=== PATIENT | male | born 1970 | race Caucasian/White ===

== ENCOUNTER 2024-11-06 22:49 | Emergency (ER) | payer MEDICAID ==
[~2024-11-06] VITALS: Ht 180.3 cm; Wt 84.1 kg
[2024-11-06 22:54] VITALS: BP 181/109; PULSE 101; RESP 16; O2SAT 100
--- NOTE | 2024-11-07 00:03 | Physician Documentation ---
HPI ~ General Chief Complaint: Medication Refill Stated Complaint: MEDICATION REFILL Time Seen by MD: 23:43 History of Present Illness HPI Comments The patient Is seen today with complaints of needing refills of his medications including spironolactone, Eliquis, losartan, furosemide, digoxin, and diltiazem. Patient denies any current chest pain or shortness of breath or abdominal pain or nausea, vomiting, diarrhea. Patient has no other concern or complaint at this time. Medication Reconciliation Allergies: Coded Allergies: No Known Allergies (Unverified , 11/06/24) Review of Systems Constitutional: Denies: chills, fever, weakness Eyes: Denies: pain, blurred vision ENT: Denies: ear pain, nose pain, throat pain, mouth pain Respiratory: Denies: cough, shortness of breath Cardiovascular: Denies: chest pain, palpitations Gastrointestinal: Denies: abdominal pain, nausea, vomiting Genitourinary: Denies: burning, dysuria Male Genitalia: Denies: penile discharge, testicular pain Neurological: Denies: headache, dizziness Musculoskeletal: Denies: pain, swelling Integumentary: Denies: rash, lesions Allergic/Immunologic: Denies: hives, itching Hematologic/Lymphatic: Denies: no symptoms reported Psychiatric: Denies: depression, anxiety Physical Exam Physical Exam Vital Signs: Temperature: 97.0, Source: Temporal, Heart Rate: 101, Respiratory Rate: 16, BP: 181/109, Pulse Oximetry: 100, Weight: 84.090 Physical Exam General: Awake and Alert, no acute distress. HEENT: Conjunctiva pink, Sclera clear, Mucus Membranes moist. Neck: Supple without masses and tenderness. Resp: Unlabored. Lungs clear to auscultation bilaterally. Heart: Regular Rate and rhythm, normal S1 and S2 without murmur, rub or gallop. Abdomen: Soft and non tender no organomegaly Extremities: No cyanosis,clubbing or edema. Skin: Warm and Dry. Progress Results/Orders Results/Orders Vital Signs 11/06/24 22:54 Temp 97.0 Pulse 101 Resp 16 B/P (MAP) 181/109 Pulse Ox 100 Medical Decision Making Findings The patient Is seen today with complaints of needing refills of his medications including spironolactone, Eliquis, losartan, furosemide, digoxin, and diltiazem. Patient denies any current chest pain or shortness of breath or abdominal pain or nausea, vomiting, diarrhea. Patient has no other concern or complaint at this time. Patient was given refills of spironolactone 25 mg p.o. q.d., Eliquis 5 mg p.o. b.i.d., losartan 100 mg p.o. q.d., furosemide 20 mg p.o. q.d., digoxin 250 mg p.o. q.d., diltiazem extended release 24 hour 180 mg p.o. q.d.. Patient will follow up with primary care for refills next month. Return to ED with any worsening, concerning or changing symptoms. Differential Dx:Considerations: Include: Adverse circumstances, Economic, Psychosocial, Medical services unavail., Medication refill, Medication non- compliance, Other Departure Disposition: 01 HOME / SELF CARE / HOMELESS Impression: Primary Impression: General medical exam Condition: Improved Discharge Instructions: Medicine Refill at the Emergency Department Additional Instructions: Patient was given refills of spironolactone 25 mg p.o. q.d., Eliquis 5 mg p.o. b.i.d., losartan 100 mg p.o. q.d., furosemide 20 mg p.o. q.d., digoxin 250 mg p.o. q.d., diltiazem extended release 24 hour 180 mg p.o. q.d.. Patient will follow up with primary care for refills next month. Return to ED with any worsening, concerning or changing symptoms. Referrals: NO PRIMARY CARE PROVIDER (PCP) Prescriptions Diltiazem Hcl (Diltiazem 24HR Cd) 180 Mg Cap.er.24h 1 CAP PO DAILY for 30 Days, #30 CAP 0 Refills Prov: ARAMIS MARTINEZ PAC 11/07/24 Digoxin* (Lanoxin*) 250 Mcg Tablet 1 TAB PO DAILY for 30 Days, #30 TAB Prov: ARAMIS MARTINEZ PAC 11/07/24 Furosemide* (Lasix*) 20 Mg Tablet 1 TAB PO DAILY for 30 Days, #30 TAB Prov: ARAMIS MARTINEZ PAC 11/07/24 Losartan Potassium (Losartan Potassium) 100 Mg Tablet 1 TAB PO DAILY for 30 Days, #30 TAB 0 Refills Prov: ARAMIS MARTINEZ PAC 11/07/24 Apixaban (ELIQUIS) 5 Mg Tablet 1 TAB PO Q12H for 30 Days, #60 TAB 0 Refills Prov: ARAMIS MARTINEZ 11/07/24 Spironolactone (Spironolactone) 25 Mg Tablet 1 TAB PO DAILY for 30 Days, #30 TAB 0 Refills Prov: ARAMIS MARTINEZ 11/07/24 Signature Scribe Signature: No scribe Attestation: No scribe ARAMIS MARTINEZ November 07, 2024 00:03
[2024-11-07] MEDS ORDERED: DILT180C89 PO (00:08)
[2024-11-07] MEDS ORDERED: LOSA100T58 PO (00:08)
[2024-11-07] MEDS ORDERED: APIX5TAB3 PO (00:08)
[2024-11-07] MEDS ORDERED: SPIR25TA5 PO (00:08)
[2024-11-07] MEDS ORDERED: FURO-150 PO (00:08)
[2024-11-07] MEDS ORDERED: DIGO250T PO (00:08)
[2024-11-07 00:32] VITALS: TEMP 97
== END 2024-11-07 00:37 | disposition home or self-care (01) ==
LOC: ER 22:50
DX: I10 Essential (primary) hypertension (principal); Z76.0 Encounter for issue of repeat prescription
CPT/HCPCS: 99281

== ENCOUNTER 2025-01-23 16:49 | Emergency (ER) | payer MEDICAID ==
[~2025-01-23] VITALS: Ht 180.3 cm; Wt 89.0 kg
[~2025-01-23 16:49] MED LIST: APIX5TAB3 PO; DILT180C89 PO; LOSA100T58 PO; SPIR25TA5 PO
[2025-01-23 17:31] VITALS: BP 135/87; PULSE 87; TEMP 98.4; O2SAT 97
--- NOTE | 2025-01-23 17:48 | Physician Documentation ---
History of Present Illness ~ Chief Complaint: Rash Stated Complaint: ABD PAIN Time Seen by MD: 17:35 HPI Patient is seen today with complaints of abdominal pain on the right side. Patient originally was thinking he had appendicitis but states he also has a rash on the right side of his abdomen that started yesterday. Patient does admit to having chickenpox as a kid. He has no other concern or complaint at this time. He denies any fevers or chills or facial rash or changes in vision or hearing. He has no other concern or complaint at this time. Medication Reconciliation Allergies: Coded Allergies: No Known Allergies (Unverified , 01/23/25) Scheduled Apixaban (Eliquis), 1 TAB PO Q12H Diltiazem Hcl (Diltiazem 24HR Cd), 1 CAP PO DAILY Losartan Potassium (Losartan Potassium), 1 TAB PO DAILY Spironolactone (Spironolactone), 1 TAB PO DAILY Review of Systems Constitutional: Denies: chills, fever, weakness Eyes: Denies: pain, blurred vision ENT: Denies: ear pain, nose pain, throat pain, mouth pain Respiratory: Denies: cough, shortness of breath Cardiovascular: Denies: chest pain, palpitations Gastrointestinal: Denies: abdominal pain, nausea, vomiting Genitourinary: Denies: burning, dysuria Male Genitalia: Denies: penile discharge, testicular pain Neurological: Denies: headache, dizziness Musculoskeletal: Denies: pain, swelling Integumentary: Denies: rash, lesions Allergic/Immunologic: Denies: hives, itching Hematologic/Lymphatic: Denies: no symptoms reported Psychiatric: Denies: depression, anxiety Physical Exam Vital Signs: Temperature: 98.4, Source: Oral, Heart Rate: 87, Respiratory Rate: 16, BP: 135/87, Pulse Oximetry: 97, Weight: 89.000 Oxygen Flow Rate: 0 Physical Exam General: Awake and Alert, no acute distress. HEENT: Conjunctiva pink, Sclera clear, Mucus Membranes moist. Neck: Supple without masses and tenderness. Resp: Unlabored. Lungs clear to auscultation bilaterally. Heart: Regular Rate and rhythm, normal S1 and S2 without murmur, rub or gallop. Abdomen: Soft and non tender no organomegaly Extremities: No cyanosis,clubbing or edema. Skin: Patient on exam does have rash highly consistent with shingles around the abdomen on the right side that does not cross the midline of the abdomen or lower back. Rash is just above the waistline. Vesicle formation with erythematous base. Progress Results/Orders Results/Orders Vital Signs 01/23/25 17:31 Temp 98.4 Pulse 87 Resp 16 B/P (MAP) 135/87 Pulse Ox 97 O2 Flow Rate 0 Medical Decision Making Findings Patient is seen today with complaints of abdominal pain on the right side. Patient originally was thinking he had appendicitis but states he also has a rash on the right side of his abdomen that started yesterday. Patient does admit to having chickenpox as a kid. He has no other concern or complaint at this time. He denies any fevers or chills or facial rash or changes in vision or hearing. He has no other concern or complaint at this time. Patient was given dose of valacyclovir a 1000 mg by mouth in the ED tonight. Prescription of valacyclovir 1000 mg 3 times a day for seven days sent to patient's pharmacy. Patient was also given Toradol shot 30 mg IM in the ED today. Patient will continue Tylenol and ibuprofen as needed for symptomatic pain relief. Patient will return to ED or follow up with primary care in 7-14 days if no better or as needed sooner. Departure Disposition: 01 HOME / SELF CARE / HOMELESS Impression: Primary Impression: Shingles outbreak Qualified Codes: B02.7 - Disseminated zoster Condition: Stable Discharge Instructions: Shingles, [id number] Additional Instructions: Patient was given dose of valacyclovir a 1000 mg by mouth in the ED tonight. Prescription of valacyclovir 1000 mg 3 times a day for seven days sent to patient's pharmacy. Patient was also given Toradol shot 30 mg IM in the ED today. Patient will continue Tylenol and ibuprofen as needed for symptomatic p ain relief. Patient will return to ED or follow up with primary care in 7-14 days if no better or as needed sooner. Referrals: NO PRIMARY CARE PROVIDER (PCP) Prescriptions Acetaminophen (Tylenol Extra Strength) 500 Mg Tablet 2 TAB PO Q6H PRN PRN for pain or fever for 7 Days, #56 TAB Prov: ARAMIS MARTINEZ PAC 01/23/25 Ibuprofen (Ibuprofen) 800 Mg Tablet 1 TAB PO Q8H for pain for 10 Days, #30 TAB 0 Refills Prov: ARAMIS MARTINEZ 01/23/25 Valacyclovir HCl (Valacyclovir) 1,000 Mg Tablet 1 TAB PO Q8H for 7 Days, #21 TAB 0 Refills Prov: ARAMIS MARTINEZ 01/23/25 Signature Scribe Signature: No scribe Attestation: No scribe ARAMIS MARTINEZ Jan 23, 2025 17:48
[2025-01-23] MEDS ORDERED: VALA100031 PO (17:50)
[2025-01-23] MEDS ORDERED: ACET-1025 PO (17:50)
[2025-01-23] MEDS ORDERED: IBUP-1986 PO (17:50)
[2025-01-23 17:55] VITALS: RESP 16
[2025-01-23] MEDS: ketorolac trometh 30MG/ML vial 30 MG/ML VIAL IM STA (17:55)
== END 2025-01-23 18:00 | disposition home or self-care (01) ==
LOC: ER 16:49
DX: B02.8 Zoster with other complications (principal); Z79.899 Other long term (current) drug therapy
CPT/HCPCS: 96372; 99283; J1885

== ENCOUNTER 2025-03-10 14:38 | Emergency (ER) | payer MEDICAID ==
[~2025-03-10] VITALS: Ht 348 cm; Wt 89.2 kg
[~2025-03-10 14:38] MED LIST changes: +IBUP-1986 PO; +VALA100031 PO
[2025-03-10 14:46] VITALS: TEMP 98.2
--- NOTE | 2025-03-10 14:54 | ELECTROCARDIOGRAPH REPORT ---
[facility] Test Date: 2025-03-10 Test Time: 14:51:06 Pat Name: RASHAD WEINER Department: [facility]- Patient ID: [facility]-[id number] Room: Gender: M [employer]: : 1970 Requested By: KARIN JANE Order Number: [id number] Reading MD: Measurements Intervals [place] Rate: 146 P: 0 CO: 0 QRS: 131 QRSD: 87 T: -29 QT: 288 QTc: 449 Interpretive Statements Atrial fibrillation Right axis deviation Nonspecific repol abnormality, diffuse leads Baseline wander in lead(s) V1,V2,V3 Please click the below link to view image of tracing.
--- NOTE | 2025-03-10 14:59 | Physician Documentation ---
HPI ~ General Chief Complaint: Medication Refill Stated Complaint: MED REQUEST Time Seen by MD: 14:59 History of Present Illness HPI Comments 54-year-old male with a history of chronic atrial fibrillation ran out of his medication was unable to get a doctor's appointment to fill his prescriptions. While in triage it was noted that he is likely an elevated rate of atrial fib rillation over 150 beats per minute. Patient states that he feels fine otherwise other than not being able to walk up stairs because he will feel short of breath. Patient also has a history of congestive heart failure. Denying pain at this time Without Medications Since: Mar 10, 2025 Medication Reconciliation Allergies: Coded Allergies: No Known Allergies (Unverified , 01/23/25) Scheduled Apixaban (Eliquis), 1 TAB PO Q12H Digoxin (Digitek), 1 TAB PO DAILY Diltiazem Hcl (Diltiazem 24HR Cd), 1 CAP PO DAILY Furosemide (Furosemide), 1 TAB PO DAILY Ibuprofen (Ibuprofen), 1 TAB PO Q8H Losartan Potassium (Losartan Potassium), 1 TAB PO DAILY Spironolactone (Spironolactone), 1 TAB PO DAILY Valacyclovir HCl (Valacyclovir), 1 TAB PO Q8H Physical Exam Physical Exam Vital Signs: Temperature: 98.2, Source: Temporal, Heart Rate: 68, Respiratory Rate: 18, BP: 147/80, Pulse Oximetry: 98, Weight: 89.200 Oxygen Flow Rate: 0 Physical Exam General: Alert, no apparent distress. Respiratory: Lungs clear, no respiratory distress. Chest: No accessory muscle use. Cardiovascular: Atrial fibbrillation Gastrointestinal: Soft, nontender, nondistended. Bowels sounds present. Neurologic: Oriented x4. Psychiatric: Normal mood and affect. Skin: Normal color, warm and dry. No edema, no ecchymosis. Progress Results/Orders Results/Orders Orders - ZEFERINO WATKINS JEWELRY ENAMELER Chest,Single View (03/10/25 15:19) Monitor (03/10/25 15:19) Saline Lock (03/10/25 15:19) Hs Troponin I W Calculations (03/10/25 17:19) Hs Troponin I W Calculations (03/10/25 18:19) Diltiazem Cd Capsule (Cardizem Cd Capsul (03/10/25 16:10) Completed Orders - ZEFERINO WATKINS JEWELRY ENAMELER Diltiazem Iv (Cardizem Iv 5mg/Ml Inj.) (03/10/25 15:10) Chest,Single View (03/10/25 15:19) Cbc/Diff (03/10/25 15:19) BMP (03/10/25 15:19) PBNP (03/10/25 15:19) Hs Troponin I W Calculations (03/10/25 15:19) Medications Received in ER Medications (Trade) Dose Ordered Sig/Taylor Route PRN Reason Start Time Stop Time Status Last Admin Dose Admin (Cardizem IV 5mg/ ml inj.) 15 mg ONCE ONCE IV 03/10/25 15:10 03/10/25 15:11 DC 03/10/25 15:15 15 MG Vital Signs 03/10/25 03/10/25 03/10/25 14:46 15:15 15:22 Temp 98.2 Pulse 68 144 104 Resp 18 14 B/P (MAP) 147/80 149/98 149/98 (115) Pulse Ox 98 97 O2 Flow Rate 0 Laboratory Tests Test 03/10/25 15:20 White Blood Count 9.6 Red Blood Count 4.31 L Hemoglobin 13.7 L Hematocrit 40.4 L Mean Corpuscular Volume 93.6 Mean Corpuscular Hemoglobin 31.8 H Mean Corpuscular Hemoglobin Concent 33.9 Red Cell Distribution Width 14.1 Platelet Count 262 Mean Platelet Volume 8.2 Neutrophils (%) (Auto) 54.5 Lymphocytes (%) (Auto) 32.2 Monocytes (%) (Auto) 8.6 Eosinophils (%) (Auto) 4.0 Basophils (%) (Auto) 0.7 Neutrophils # (Auto) 5.2 Lymphocytes # (Auto) 3.1 Monocytes # (Auto) 0.8 Eosinophils # (Auto) 0.4 Basophils # (Auto) 0.1 CBC Comment Sodium Level 139 Potassium Level 3.9 Chloride Level 104 Carbon Dioxide Level 27.7 Anion Gap 7 L Blood Urea Nitrogen 23 H Creatinine 1.09 Estimated GFR/1.73 m2 70 BUN/Creatinine Ratio 21.1 H Glucose Level 106 H Calcium Level 8.7 Troponin I High Sensitivity 18 Pro-B-Type Natriuretic Peptide 1198 H Albumin 3.3 L Chemistry Comments Medical Decision Making Findings This patient came in with an elevated heart rate in the 160s. Indicating untreated atrial fibrillation which is not surprising concerning has not taken his medication for a few days. I gave him an initial bolus of Cardizem which brought his heart rate down to the around 100 has remained there since his initial bolus. I did give him an additional dose of Cardizem orally and he remained pain-free says he feels great and does not want to be admitted to the hospital. I feel this is reasonable as he has got negative troponins he does have an elevated proBNP what she is being treated for in the outpatient setting. At this time he presents as a safe discharge Differential Dx:Considerations: Include: Adverse circumstances, Economic, Psychosocial, Medical services unavail., Medication refill, Medication non- compliance, Other Departure Disposition: 01 HOME / SELF CARE / HOMELESS Impression: Primary Impression: General medical exam Referrals: NO PRIMARY CARE PROVIDER (PCP) Prescriptions Furosemide (Furosemide) 20 Mg Tablet 1 TAB PO DAILY for 30 Days, #30 TAB Prov: ZEFERINO WATKINS NP 03/10/25 Digoxin (Digitek) 250 Mcg (0.25 Mg) Tablet 1 TAB PO DAILY for 30 Days, #30 TAB Prov: ZEFERINO WATKINS NP 03/10/25 Diltiazem Hcl (Diltiazem 24HR Cd) 180 Mg Cap.er.24h 1 CAP PO DAILY for 30 Days, #30 CAP 0 Refills Prov: ZEFERINO WATKINS NP 03/10/25 Losartan Potassium (Losartan Potassium) 100 Mg Tablet 1 TAB PO DAILY for 30 Days, #30 TAB 0 Refills Prov: ZEFERINO WATKINS NP 03/10/25 Apixaban (ELIQUIS) 5 Mg Tablet 1 TAB PO Q12H for 30 Days, #60 TAB 0 Refills Prov: ZEFERINO WATKINS NP 03/10/25 Spironolactone (Spironolactone) 25 Mg Tablet 1 TAB PO DAILY for 30 Days, #30 TAB 0 Refills Prov: ZEFERINO WATKINS NP 03/10/25 Signature Scribe Signature: n Attestation: Scribed for Zeferino Watkins Np by Zeferino Escalante NP . 03/10/25 16:00 ZEFERINO WATKINS NP Mar 10, 2025 14:59
[2025-03-10] MEDS: diltiazem 5mg/ml 5ml inj. IV ONE (15:15)
[2025-03-10] MEDS ORDERED: DILT180C89 PO (15:31)
[2025-03-10] MEDS ORDERED: SPIR25TA5 PO (15:31)
[2025-03-10] MEDS ORDERED: LOSA100T58 PO (15:31)
[2025-03-10] MEDS ORDERED: FURO20TA4 PO ×2 (15:31→15:32)
[2025-03-10] MEDS ORDERED: DIGO250T2 PO ×2 (15:31→15:32)
[2025-03-10] MEDS ORDERED: APIX5TAB3 PO (15:31)
--- NOTE | 2025-03-10 15:37 | RADIOLOGY REPORT ---
CHEST RADIOGRAPH Indication: CP Technique: DI CHEST,SINGLE VIEW Comparison: None FINDINGS: The cardiac silhouette is unremarkable. The lungs demonstrate bibasilar airspace opacities, [id number]. The pulmonary vasculature is unremarkable. There is no pleural effusion. There is no pneumothorax. Aortic atherosclerotic disease IMPRESSION: Bibasilar airspace opacities, [id number]-left.
[2025-03-10 15:38] LABS: MEAN PLATELET VOLUME 8.2 FL (7.4-10.4); RED CELL DISTRIBUTION WIDTH 14.1 % (11.5-14.5)
[2025-03-10 16:01] LABS: CREATININE 1.09 MG/DL (0.60-1.10); PRO BRAIN NATRIURETIC PEPTIDE 1198 PG/ML (0-125); TOTAL CARBON DIOXIDE 27.7 MMOL/L (24-32); eCRCL 95 ML/MIN; eGFR 70 ML/MIN
[2025-03-10] MEDS: diltiazem CD 120mg capsule (once-daily) PO ONE (16:24)
[2025-03-10 16:29] VITALS: BP 158/100; PULSE 93; RESP 18; O2SAT 98
== END 2025-03-10 16:33 | disposition home or self-care (01) ==
LOC: ER 14:39
DX: Z00.8 Encounter for other general examination (principal); R06.02 Shortness of breath; I48.20 Chronic atrial fibrillation, unspecified; I50.9 Heart failure, unspecified
CPT/HCPCS: 36415; 71045; 80048; 83880; 84484; 85025; 93005; 96374; 99285; J3490; J7030

== ENCOUNTER 2025-05-30 21:28 | Emergency (ER) | payer MEDICAID ==
[~2025-05-30] VITALS: Ht 182.9 cm; Wt 86.7 kg
[~2025-05-30 21:28] MED LIST changes: +AMIO200T76 PO; +DIGO250T2 PO; -DILT180C89 PO; +EMPA10TA PO; +FURO20TA4 PO; -IBUP-1986 PO; +METO-395 PO; -VALA100031 PO
[2025-05-30 21:32] VITALS: BP 161/94; PULSE 93; RESP 16; O2SAT 97
--- NOTE | 2025-05-30 21:50 | Physician Documentation ---
HPI ~ General Chief Complaint: Medication Request Stated Complaint: MED REQUEST Time Seen by MD: 21:38 OK to notify your PCP?: Yes Source: patient, RN/MD, RN notes reviewed, old records Mode of Arrival: POV Exam Limitations: no limitations History of Present Illness HPI Comments Patient is just about to run out of his medicines he has been compliant he has AFib. He has had trouble finding a primary care physician. He has found one at [facility] but can not get an appointment in a timely manner and still does not have an appointment but at least he is allowed into [facility]. Patient is here for evaluation denies chest pain sh ortness of breath has not had any recent labs. Patient is stating he is feeling much better he does not have edema any longer and is requesting his medications. Medication Reconciliation Allergies: Coded Allergies: No Known Allergies (Unverified , 04/26/25) Scheduled Amiodarone Hcl (Cordarone), 200 MG PO BID Apixaban (Eliquis), 1 TAB PO Q12H Digoxin (Digitek), 1 TAB PO DAILY Empagliflozin (Jardiance), 1 TAB PO DAILY Furosemide (Furosemide), 1 TAB PO DAILY Losartan Potassium (Losartan Potassium), 1 TAB PO DAILY Metoprolol Succinate (Metoprolol Succinate), 1 TAB PO DAILY Spironolactone (Spironolactone), 1 TAB PO DAILY Past Medical History Past Medical History: Atrial Fibrillation Past Surgical History: no surgical history Patient History: Patient reports no known family medical history. Smoking Status: Current every day smoker Alcohol Use: None Drug Use: none Review of Systems All Other Systems at this time: Reviewed and Negative Physical Exam Physical Exam Vital Signs: RN Vital Signs have been reviewed: Yes, Temperature: 97.5, Source: Temporal, Heart Rate: 93, Respiratory Rate: 16, BP: 161/94, Pulse Oximetry: 97, Weight: 86.700 Physical Exam General: The patient is well developed, well nourished, nontoxic appearing and is in no acute distress. Skin: [place], warm and dry with no rashes. HEENT: Head was normocephalic and atraumatic. Eyes - pupils equal, round, reactive to light and accommodation. Extraocular movements were intact. Conjunctivae were nonicteric. Neck: Supple and nontender. There was no jugular venous distention, Chest: Clear to auscultation bilaterally without wheezes, rales or rhonchi. Heart: Rate regular and rhythmic. S1, S2. No murmurs. Palpation of the chest wall was normal. Abdomen: Soft, nontender and nondistended. Positive bowel sounds. No guarding or rebound. Extremities: No cyanosis, clubbing The patient moves all extremities. Pulses were equal and symmetric. Trace peripheral edema Neurologic: Motor sensory grossly intact Psychologic: The patient was oriented to person, place and time. The patient demonstrated appropriate judgement and insight. Progress Results/Orders Reviewed/noted all lab results: Yes Results/Orders Vital Signs 05/30/25 21:32 Temp 97.5 Pulse 93 Resp 16 B/P (MAP) 161/94 Pulse Ox 97 Re-Evaluation Re-Evaluation : Re-Evaluation: Improved, Unchanged Progress Patient is here for med refill doing well no new symptoms has a primary but no formal appointment at this time. Medical Decision Making Additional information obtaine: old records Findings Medication refill No symptoms Differential Dx:Considerations: Include: Adverse circumstances, Economic, Psychosocial, Medical services unavail., Medication refill, Medication non- compliance, Other Departure Disposition: HOME / SELF CARE / HOMELESS Impression: Primary Impression: General medical exam Additional Impression: Atrial fibrillation Qualified Codes: I48.91 - Unspecified atrial fibrillation Condition: Stable Discharge Instructions: Medicine Refill at the Emergency Department Referrals: NO PRIMARY CARE PROVIDER (PCP) Prescriptions Empagliflozin (Jardiance) 10 Mg Tablet 1 TAB PO DAILY for 90 Days, #90 TAB 0 Refills Prov: YO LEON MD 05/30/25 Amiodarone Hcl (Cordarone) 200 Mg Tablet 200 MG PO BID for 90 Days, #180 TAB Prov: YO LEON MD 05/30/25 Furosemide (Furosemide) 20 Mg Tablet 1 TAB PO DAILY for 90 Days, #90 TAB Prov: YO LEON MD 05/30/25 Digoxin (Digitek) 250 Mcg (0.25 Mg) Tablet 1 TAB PO DAILY for 90 Days, #90 TAB Prov: YO LEON MD 05/30/25 Losartan Potassium (Losartan Potassium) 100 Mg Tablet 1 TAB PO DAILY for 90 Days, #90 TAB 0 Refills Prov: YO LEON MD 05/30/25 Apixaban (ELIQUIS) 5 Mg Tablet 1 TAB PO Q12H for 90 Days, #180 TAB 0 Refills Prov: YO LEON MD 05/30/25 Spironolactone (Spironolactone) 25 Mg Tablet 1 TAB PO DAILY for 90 Days, #90 TAB 0 Refills Prov: YO LEON MD 05/30/25 Education Educated: Patient, Family Educated regarding: diagnosis, treatment, need for follow up, other Signature Scribe Signature: n Attestation: The note accurately reflects work and decisions made by me.Yo Leon MD 05/30/25 21:50 YO LEON MD May 30, 2025 21:50
[2025-05-30] MEDS ORDERED: EMPA10TA PO (21:55)
[2025-05-30] MEDS ORDERED: APIX5TAB3 PO (21:55)
[2025-05-30] MEDS ORDERED: SPIR25TA5 PO (21:55)
[2025-05-30] MEDS ORDERED: FURO20TA4 PO (21:55)
[2025-05-30] MEDS ORDERED: AMIO200T76 PO (21:55)
[2025-05-30] MEDS ORDERED: DIGO250T2 PO (21:55)
[2025-05-30] MEDS ORDERED: LOSA100T58 PO (21:55)
[2025-05-30 22:05] VITALS: TEMP 97.5
== END 2025-05-30 22:15 | disposition home or self-care (01) ==
LOC: ER 21:28
DX: Z00.00 Encounter for general adult medical examination without abnormal findings (principal); I48.91 Unspecified atrial fibrillation; F17.200 Nicotine dependence, unspecified, uncomplicated; Z79.899 Other long term (current) drug therapy; Z79.02 Long term (current) use of antithrombotics/antiplatelets
CPT/HCPCS: 99282